=== PATIENT | female | born 1970 | race Native Hawaiian/Other Pacific Islander ===

== ENCOUNTER 2017-06-02 19:14 | Emergency (ER) | payer OTHER ==
[~2017-06-02] VITALS: Ht 167.6 cm; Wt 94.8 kg
[2017-06-02 20:01] LABS: PLATELET COUNT 256 K/uL (152-353)
[2017-06-02 20:08] LABS: POTASSIUM 3.6 mmol/L (3.6-5.2)
[2017-06-02 22:15] VITALS: BP 132/95; TEMP 98.9
== END 2017-06-02 22:26 | disposition home or self-care (01) ==
LOC: ED 19:14
DX: K52.9 Noninfective gastroenteritis and colitis, unspecified (principal)
CPT/HCPCS: 80053; 82272; 85027; 87205; 87324; 87449; 87493; 96360; 96361; 99284; J2405

== ENCOUNTER 2017-09-22 11:48 | Outpatient (CLI) | payer BC | END 2017-09-22 12:50 | disposition home or self-care (01) | LOC: RAD 11:48 | DX: M79.672 Pain in left foot (principal) ==

== ENCOUNTER 2018-05-19 23:17 | Observation (INO) | payer BC ==
[~2018-05-19] VITALS: Ht 167.6 cm; Wt 109.4 kg
[2018-05-19 23:10] VITALS: BP 152/97; TEMP 97.8
[2018-05-20] VITALS (7 sets, daily range): BP systolic 97–139; BP diastolic 55–84; TEMP 97.9–98.7; Ht 167.6 cm; Wt 109.4 kg
[2018-05-20 00:24] LABS: PLATELET COUNT 228 K/uL (152-353)
[2018-05-20 00:33] LABS: POTASSIUM 3.3 mmol/L (3.6-5.2)
[2018-05-20 09:57] LABS: PLATELET COUNT 225 K/uL (152-353)
[2018-05-20 10:03] LABS: POTASSIUM 3.7 mmol/L (3.6-5.2)
== END 2018-05-20 17:55 | disposition home or self-care (01) ==
LOC: ED 23:17 → MED/SURG 05-20 01:25
PROVIDERS: ADMIT Specialist
DX: R55 Syncope and collapse (principal); R07.89 Other chest pain; I10 Essential (primary) hypertension; R61 Generalized hyperhidrosis; R53.1 Weakness; R79.89 Other specified abnormal findings of blood chemistry
CPT/HCPCS: 36415; 80053; 81000; 81025; 82550; 83735; 84100; 84443; 84484; 85027; 85379; 93005; 96372; 99220; 99284; G0378; J1650

== ENCOUNTER 2019-10-22 01:05 | Observation (INO) | payer OTHER ==
[2019-10-22] VITALS (12 sets, daily range): BP systolic 106–148; BP diastolic 67–90; TEMP 97.8–98.2; Ht 167.6 cm; Wt 101.3 kg
[~2019-10-22] VITALS: Ht 167.6 cm; Wt 101.3 kg
[2019-10-22] MEDS ORDERED: ALLERGY10 M1 PO (01:24)
[2019-10-22] MEDS ORDERED: VITAMIN D31000 UNI3 PO (01:25)
[2019-10-22] MEDS ORDERED: FORTAMET500 MG PO (01:26)
[2019-10-22] MEDS ORDERED: OMEPRAZOLE20 M1 PO (01:27)
[2019-10-22] MEDS ORDERED: FUROSEMIDE20 MG PO (01:28)
[2019-10-22] MEDS ORDERED: GLIM4TAB PO (01:29)
[2019-10-22] MEDS ORDERED: POTASSIUM CHLO10 MEQ PO (01:29)
[2019-10-22] MEDS ORDERED: DIOVAN HC1 PO (01:30)
[2019-10-22] MEDS ORDERED: FLUOXETINE HYDR20 MG PO (01:30)
[2019-10-22 02:11] LABS: PLATELET COUNT 176 K/uL (152-353)
[2019-10-22 02:19] LABS: POTASSIUM 3.3 mmol/L (3.6-5.2); SODIUM 139 mmol/L (136-145)
[2019-10-22 02:44] LABS: PARTIAL THROMBOPLASTIN TIME 26.3 SECONDS (24.5-33.6)
[2019-10-22] MEDS ORDERED: PROAIR HFA PO (05:36)
[2019-10-23] VITALS: BP 118/54; TEMP 98.6
[2019-10-23 04:00] VITALS: BP 108/61; TEMP 97.6
[2019-10-23 08:00] VITALS: BP 130/81; TEMP 97.8
== END 2019-10-23 10:55 | disposition home or self-care (01) ==
LOC: ED 01:05 → MED/SURG 04:09
PROVIDERS: ADMIT Hospitalist
DX: R07.89 Other chest pain (principal); N39.0 Urinary tract infection, site not specified; I25.10 Atherosclerotic heart disease of native coronary artery without angina pectoris; E11.9 Type 2 diabetes mellitus without complications; K21.9 Gastro-esophageal reflux disease without esophagitis; I10 Essential (primary) hypertension; E66.8 Other obesity; R06.02 Shortness of breath; R53.1 Weakness; E78.00 Pure hypercholesterolemia, unspecified; J43.8 Other emphysema
CPT/HCPCS: 36415; 80053; 81000; 82550; 82947; 83880; 84484; 85027; 85379; 85610; 85730; 87040; 87502; 93005; 94640; 94664; 94760; 96372; 96374; 96375; 99220; 99284; G0378; J1650; J1815; J2405; J2930; Q9963

== ENCOUNTER 2020-01-15 10:50 | Outpatient (CLI) | payer OTHER ==
[~2020-01-15 10:50] MED LIST: ALLERGY10 M1 PO; DIOVAN HC1 PO; FLUOXETINE HYDR20 MG PO; FORTAMET500 MG PO; FUROSEMIDE20 MG PO; GLIM4TAB PO; OMEPRAZOLE20 M1 PO; POTASSIUM CHLO10 MEQ PO; PROAIR HFA PO; VITAMIN D31000 UNI3 PO
== END 2020-01-15 21:59 | disposition home or self-care (01) ==
LOC: MAMMO 10:50
DX: Z12.31 Encounter for screening mammogram for malignant neoplasm of breast (principal)

== ENCOUNTER 2021-03-04 13:51 | Outpatient (CLI) | payer OTHER | END 2021-03-04 20:31 | disposition home or self-care (01) | LOC: INF 13:51 | PROVIDERS: ATTEND Internal Medicine | DX: Z23 Encounter for immunization (principal) | CPT/HCPCS: 96372 ==

== ENCOUNTER 2021-03-26 13:37 | Outpatient (CLI) | payer OTHER | END 2021-03-26 20:38 | disposition home or self-care (01) | LOC: INF 13:37 | PROVIDERS: ATTEND Internal Medicine | DX: Z23 Encounter for immunization (principal) | CPT/HCPCS: 96372 ==

== ENCOUNTER 2021-05-29 19:29 | Emergency (ER) | payer OTHER ==
[~2021-05-29] VITALS: Ht 160 cm; Wt 102.1 kg
[2021-05-29 22:31] VITALS: BP 183/81; TEMP 98.3
== END 2021-05-29 22:31 | disposition home or self-care (01) ==
LOC: ED 19:29
DX: T63.461A Toxic effect of venom of wasps, accidental (unintentional), initial encounter (principal); R22.1 Localized swelling, mass and lump, neck; Y93.89 Activity, other specified; Y92.89 Other specified places as the place of occurrence of the external cause
CPT/HCPCS: 96372; 99283; J0171; J2930

== ENCOUNTER 2022-06-12 18:10 | Emergency (ER) | payer OTHER ==
[~2022-06-12] VITALS: Ht 175.3 cm; Wt 101.6 kg
[~2022-06-12 18:10] MED LIST changes: +ALLEGRA ALRG180 M1 PO; +INDOMETHACIN75 MG PO; +K-99 PO; +METF500T PO; +TRICOR145 M1 PO
[2022-06-12 20:53] VITALS: BP 156/91; TEMP 97.6
== END 2022-06-12 20:53 | disposition home or self-care (01) ==
LOC: ED 18:10
DX: M25.552 Pain in left hip (principal); M54.59 Other low back pain; M47.896 Other spondylosis, lumbar region
CPT/HCPCS: 81002; 99283

== ENCOUNTER 2023-08-16 10:11 | Outpatient (CLI) | payer OTHER | END 2023-08-16 20:45 | disposition home or self-care (01) | LOC: RAD 10:11 | PROVIDERS: ATTEND Nurse Practitioner Family | DX: R10.2 Pelvic and perineal pain (principal) ==